=== PATIENT | female | born 1990 ===

== ENCOUNTER 2019-08-11 12:28 | Outpatient (CLI) | payer MEDICAID ==
[2019-08-11 17:41] LABS: BASOPHILS % (AUTO) 0.5 %; EOSINOPHILS # (AUTO) 0.1 10^3/uL (0.0-0.7); EOSINOPHILS % (AUTO) 1.5 %; HGB - HEMOGLOBIN 13.8 g/dL (12.0-16.0); LYMPHOCYTES # (AUTO) 1.9 10^3/uL (1.5-3.5); LYMPHOCYTES % (AUTO) 32.5 %; MEAN CORPUSCULAR HEMOGLOBIN 29.2 pg (27.0-31.0); MEAN CORPUSCULAR HGB CONC 32.5 g/dL (32.0-36.0); MEAN PLATELET VOLUME 12.4 fL (7.9-10.8); MONOCYTES # (AUTO) 0.4 10^3/uL (0.0-1.0); MONOCYTES % (AUTO) 6.2 %; NEUTROPHILS # (AUTO) 3.4 10^3/uL (1.5-6.6); NEUTROPHILS % (AUTO) 58.8 %; PLT - PLATELET COUNT 235 10^3/uL (130-450); RED BLOOD COUNT 4.72 10^6/uL (4.20-5.40); RED CELL DISTRIBUTION WIDTH 12.3 % (12.0-15.0); WHITE BLOOD COUNT 5.8 x10^3/uL (4.8-10.8)
[2019-08-11 18:03] LABS: ALBUMIN 4.6 g/dL (3.2-5.5); ALBUMIN/GLOBULIN RATIO 1.6 (1.0-2.2); BILIRUBIN,TOTAL 0.8 mg/dL (0.2-1.0); CREATININE 0.6 mg/dL (0.4-1.0); TOTAL PROTEIN 7.5 g/dL (6.7-8.2)
== END 2019-08-11 12:29 | disposition home or self-care (01) ==
LOC: LAB.S 12:28
PROVIDERS: ATTEND Registered Nurse
DX: F32.9 Major depressive disorder, single episode, unspecified (principal); F41.9 Anxiety disorder, unspecified
CPT/HCPCS: 36415; 80053; 84443; 85025

== ENCOUNTER 2021-01-07 08:00 | Outpatient (CLI) | payer MEDICAID ==
[2021-01-07 19:55] LABS: BASOPHILS % (AUTO) 0.4 %; EOSINOPHILS # (AUTO) 0.1 10^3/uL (0.0-0.7); EOSINOPHILS % (AUTO) 1.7 %; HCT - HEMATOCRIT 39.9 % (37.0-47.0); LYMPHOCYTES # (AUTO) 2.1 10^3/uL (1.5-3.5); LYMPHOCYTES % (AUTO) 29.4 %; MEAN CORPUSCULAR HEMOGLOBIN 29.1 pg (27.0-31.0); MEAN CORPUSCULAR HGB CONC 32.6 g/dL (32.0-36.0); MEAN CORPUSCULAR VOLUME 89.3 fL (81.0-99.0); MEAN PLATELET VOLUME 12.4 fL (7.9-10.8); MONOCYTES # (AUTO) 0.4 10^3/uL (0.0-1.0); MONOCYTES % (AUTO) 5.9 %; NEUTROPHILS # (AUTO) 4.3 10^3/uL (1.5-6.6); NEUTROPHILS % (AUTO) 62.3 %; PLT - PLATELET COUNT 229 10^3/uL (130-450); RED BLOOD COUNT 4.47 10^6/uL (4.20-5.40); RED CELL DISTRIBUTION WIDTH 12.5 % (12.0-15.0)
[2021-01-07 19:56] LABS: ABSOLUTE RETICS # AUTO 0.06 10^6/uL (0.020-0.110); RED BLOOD COUNT 4.38 10^6/uL (4.20-5.40); RETICULOCYTE COUNT % (AUTO) 1.37 % (0.5-2.3)
[2021-01-07 20:04] LABS: CREATININE 0.6 mg/dL (0.4-1.0); POTASSIUM 3.8 mmol/L (3.5-5.0)
[2021-01-07 20:18] LABS: % IRON SATURATION 20 % (20-50); IRON 81 ug/dL (28-170); TOTAL IRON BINDING CAPACITY 410 ug/dL (250-450); TRANSFERRIN 293 mg/dL (192-382)
[2021-01-07 20:32] LABS: FERRITIN 11.5 ng/mL (11.0-306.8)
[2021-01-07 20:36] LABS: FOLATE 11.43 ng/mL (5.90 - >24.8)
== END 2021-01-07 23:59 | disposition home or self-care (01) ==
LOC: LAB.S 08:00
PROVIDERS: ATTEND Emergency Medicine
DX: N92.1 Excessive and frequent menstruation with irregular cycle (principal)
CPT/HCPCS: 36415; 80048; 81599; 82607; 82728; 82746; 83020; 83540; 84466; 85014; 85018; 85025; 85041; 85045; 85610

== ENCOUNTER 2021-01-09 19:44 | Outpatient (CLI) | payer MEDICAID ==
--- NOTE | 2021-01-10 08:50 | Ultrasound Report ---
PROCEDURE: Pelvic w/Transvaginal INDICATIONS: MENORRHAGIA TECHNIQUE: Real-time scanning was performed of the pelvic organs, with image documentation. Additional endovagi nal scanning was necessary due to incomplete visualization of the adnexal and endometrial structures by transabdominal scanning. COMPARISON: None. FINDINGS: No pathologic free abdominal fluid. Physiologic amount of free fluid is seen in the lower pelvis. Uterus: Uterus is normal in size at 7.7 x 3.5 x 4.3 cm. The endometrium measures 3.4 mm in combined thickness. Mildly heterogeneous myometrial echotexture is seen. There is a possible 7 x 6 x 7 mm renee bserosal fibroid is seen in anterior myometrium near midline. No gross endometrial mass or fluid is s een. Ovaries: Right ovary measures 2.5 x 2.4 x 4.1 cm with a volume of 17.8 cc. Left ovary measures 3.6 x 1.2 x 4 cm with a volume of 9.1 cc. Dominant follicle versus simple cyst is seen in right ovary niki ures 1.8 x 1.4 x 1.8 cm in size. No solid appearing ovarian lesion. Normal-appearing blood flow is se en in bilateral ovaries on color Doppler images. IMPRESSION: 1. No endometrial mass or fluid. Possible very small subserosal uterine fibroid as above. Physiologic amount of free fluid is seen in lower pelvis. 2. Possible dominant follicle versus simple cyst in right ovary. No solid appearing ovarian lesion. N o evidence of ovarian torsion. Reviewed by: William Sorenson MD on 01/10/2021 8:48 AM PDT Approved by: William Sorenson MD on 01/10/2021 8:48 AM PDT Station ID: [id number]
== END 2021-01-09 19:45 | disposition home or self-care (01) ==
LOC: DI 19:44
PROVIDERS: ATTEND Emergency Medicine
DX: R93.89 Abnormal findings on diagnostic imaging of other specified body structures (principal)